=== PATIENT | female | born 1955 | race Caucasian/White ===

== ENCOUNTER 2016-10-03 17:37 | Inpatient (IN) | payer MEDICARE, OTHER ==
--- NOTE | ~2016-10-03 | DS ---
Discharge Summary [facility] [address] [place]. 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 CONSULTS: None. PROCEDURES: None. BRIEF SUMMARY: This 61-year-old female resident of [facility] was admitted with acute respiratory failure with initially concerning for possible pneumonia, aspiration, and sepsis. The patient intermediate care was with broad-spectrum antimicrobial therapy. After further observation, the patient's chest x-ray was unremarkable. White count was normal. Procalcitonin was normal and she was afebrile. With improved pulmonary toilet, her symptoms resolved, and she was continued to be observed in intermediate care and felt to transition back to her baseline. Because of the prompt recovery, this was not consistent with underlying pneumonia or aspiration, but much more consistent with mucous plugging. The patient was felt stable to return to an [facility] on her current medical therapy without significant additions or deletions. The patient will transition back to [facility] this afternoon 10/05/2016 to continue her current medical therapy as well as her current nutrition therapy via PEG tube. DICTATED BY: Sammy Jensen M.D. [facility]/MIKE Sammy Jensen M.D. / [id number] CC: Gloria Oseguera M.D.
--- NOTE | ~2016-10-03 | HP ---
History And Physical [facility] [address] [facility] [place]. [address] NAME: LENA MILAN : 59 STATUS : ADM IN [facility]#: [id number] AGE: 61 ADM/REG DATE : 10/03/16 MR#: [id number] REPORT SERV DATE: 10/04/16 DICTATED BY: YVES CATHERINE DATE: 10/04/16 REPORT STATUS : Draft TRANSCRIBED BY: MODAnand DATE: 10/04/16 DATE OF ADMISSION: 10/03/2016 CHIEF COMPLAINT: Respiratory distress and agitation. HISTORY OF PRESENT ILLNESS: This is a 61-year-old quadriplegic female with dementia and developmental delay, movement disorder, who has chronic respiratory failure status post tracheostomy, who recently was transferred from a facility in [place], [place], to [facility] here. For the last few days she has been here. Ms. Milan has been reasonably well, but this afternoon she started feeling very restless and went into respiratory distress. The respiratory therapist were summoned at that time and found her oxygen saturations were plummeting down with increased secretions from the trach as well. EMS was summoned, the patient was evaluated and then immediately transferred to [facility] ER. Not much else is available as the information from the caregivers who are at bedside, or from the transferring facility. They are still trying to get some information to us especially the patient's code status which is unknown. In the emergency room, she did have acute on chronic respiratory failure. Chest x-ray showed minimal bibasilar airspace disease versus atelectasis concerning for aspiration pneumonitis versus pneumonia. She did meet criteria for sepsis as well and Hospitalist Service is asked to admit her for further evaluation and treatment. At the time of my evaluation, the patient was unable to provide any history due to her advanced dementia and developmental delay. The limited review of systems and information was obtained from the caregivers who are at bedside. Apparently, there is no recent history of cough, fever, chills, nausea, vomiting, or any other events. PAST MEDICAL HISTORY: Significant for history of chronic respiratory failure requiring tracheostomy, chronic dysphagia requiring a J tube and a PEG tube placed. She has history of seizure disorder and as mentioned above quadriplegia with developmental delay, and dementia. She also has movement disorder. SOCIAL HISTORY: She has never smoked. Does not drink, or use recreational drugs. FAMILY HISTORY: Noncontributory. MEDICATIONS: Her medications from the facility were reviewed by me in the chart today and reordered by me. REVIEW OF SYSTEMS: As in history of present illness. No other information is available on the patient as stated. PHYSICAL EXAMINATION: GENERAL: This is a 61-year-old quadriplegic patient in quite a bit of agitation and severe mental retardation. Unable to communicate or follow commands. History And Physical [address] [address] NAME: LENA MILAN : 59 STATUS : ADM IN PAT#: [id number] AGE: 61 ADM/REG DATE : 10/03/16 MR#: [id number] REPORT SERV DATE: 10/04/16 DICTATED BY: YVES CATHERINE DATE: 10/04/16 REPORT STATUS : Draft TRANSCRIBED BY: MIKE DATE: 10/04/16 HEENT: Her head appears to be atraumatic. Her pupils are equal, reacting to light and accommodating. NECK: Appear to be supple, but with the agitation it is hard to tell. LUNGS: Auscultation of her lungs revealed no wheezes, rubs, or crackles. LUNGS: Auscultation of her heart revealed normal rate and rhythm. ABDOMEN: Soft and nontender. Bowel sounds are present. EXTREMITIES: Contractures in all four extremities without any cyanosis or clubbing. NEURO: Exam could not be performed due to her mental condition and dementia. VITAL SIGNS: Today showed a temperature of 99.4, pulse was 127, respirations 31, and blood pressure upon arrival was 119/46. Oxygen saturations upon arrival were 100% on 15 L. LABORATORY DATA: Reviewed on the Informative system showed a pH of 7.40 on arterial blood gas, pCO2 was 45, PaO2 of 101, and bicarb was 27.6. This was on 100%. CMP was essentially normal with a blood glucose of 104. Troponin was 0.02. BNP was 15.5. Lactate was not done. [place] [address], hemoglobin was 14.4, hematocrit 43.9, and platelet count was 320,000. Urinalysis was grossly unremarkable. Films of the chest x-ray were reviewed by me on the PACS today and interpreted by me. Per my interpretation, there is minimal bibasilar airspace disease versus atelectasis. IMPRESSION: 1. Acute on chronic respiratory failure to aspiration pneumonitis versus pneumonia. 2. Sepsis syndrome. 3. Seizure disorder. 4. Chronic dysphagia with J-tube and PEG placement. 5. Quadriplegia with mental retardation, developmental delay, and dementia. 6. Tracheostomy for chronic respiratory failure. 7. Movement disorder. PLAN: We will admit Ms. Milan to the Hospitalist Service to the Medical Intermediate Care Unit for close monitoring. After cultures are drawn, we will start her on empiric IV antibiotics, cover for healthcare-associated pneumonia. We will obtain lactate and procalcitonin levels, and monitor closely. Her blood pressure appears to be stable now. We will start her on IV fluids for volume resuscitation. Place a Saravia catheter. Follow outputs and weights. We will also check random cortisol and an A1c as well. She will be placed on bronchodilator treatments, supplemental oxygen therapy, and mucolytics to her regimen. The patient is tolerating trach collar well at this time. We will continue to monitor her closely. She will be placed on unfractionated heparin for DVT prophylaxis as well. Please see today's orders for details. I have discussed the above plans with the caregiver. There questions were answered and they are agreeable to the above recommendations. Of note, the patient's DNR status is unknown from the facility and so for now she will be a full code until any next of kin can be reached in the morning. History And Physical [address] [address] NAME: LENA MILAN : 59 STATUS : ADM IN [facility]#: [id number] AGE: 61 ADM/REG DATE : 10/03/16 MR#: [id number] REPORT SERV DATE: 10/04/16 DICTATED BY: YVES CATHERINE DATE: 10/04/16 REPORT STATUS : Draft TRANSCRIBED BY: MIKE DATE: 10/04/16 Hospitalist Service will be following her during her stay here. /MIKE Yves Catherine M.D. / [id number] CC: Gloria Oseguera M.D.
[2016-10-03 17:08] LABS: BASOPHILS 0.1 %; BASOPHILS ABSOLUTE 0.01 10/3/uL (0.0-0.16); EOSINOPHILS ABSOLUTE 0.13 10/3/uL (0.0-0.53); ER CBC TAT 0 Hrs 13 Mins; HEMATOCRIT 43.9 % (36.0-48.0); HEMOGLOBIN 14.4 g/dL (12.0-16.0); IMMATURE GRANULOCYTES 0.2 %; IMMATURE GRANULOCYTES ABSOLUTE 0.03 10/3/uL (0.0-0.11); LYMPHOCYTES 8.7 %; LYMPHOCYTES ABSOLUTE 1.14 10/3/uL (0.67-4.30); MANUAL DIFF NO %; MEAN CORPUS HGB CONC 32.8 g/dL (32.0-36.0); MEAN CORPUSCULAR HEMOGLOB 30.4 pg (26.0-34.0); MEAN CORPUSCULAR VOLUME 92.6 fL (80-100); MONOCYTES 6.7 %; MONOCYTES ABSOLUTE 0.88 10/3/uL (0.21-1.20); NEUTROPHILS 83.3 %; NEUTROPHILS ABSOLUTE 10.87 10/3/uL (2.02-8.40); PLATELET COUNT 320 10/3/uL (150-400); RBC DISTRIBUTION WIDTH 12.4 % (12.0-16.0); RED CELL COUNT 4.74 10/6/uL (4.0-5.6); WHITE BLOOD CELLS 13.1 10/3/uL (4.5-10.5)
[2016-10-03 17:17] LABS: BE (BASE EXCESS) 2.3 MEQ/L (0 +/- 2.5); DEVICE TM; HCO3 (ACTUAL BICARBONATE) 27.6 MEQ/L (23-27); INSTRUMENT SERIAL # 8087; PCO2 (CO2 TENSION) 45 MMHG (35-45); PO2 (O2 TENSION) 101 MMHG (79-93); SAMPLE Arterial
[2016-10-03 17:24] LABS: A/G RATIO 0.9 (0.7-1.9); ALBUMIN 3.7 G/DL (3.5-5.0); ALKALINE PHOSPHATASE 134 U/L (45-117); BUN (BLOOD UREA NITROGEN) 17 MG/DL (6-23); CALCIUM, SERUM 9.5 MG/DL (8.5-10.4); CHLORIDE, SERUM 106 MMOL/L (96-112); CO2 (CARBON DIOXIDE) 34 MMOL/L (24-34); CREATININE 0.75 MG/DL (0.55-1.02); GFR AFRICAN AMERICAN 101 ML/MIN (>=60); GFR NON AFRICAN AMERICAN 87 ML/MIN (>=60); GLOBULIN 4.3 G/DL (2.5-4.1); GLUCOSE, SERUM 168 MG/DL (60-99); POTASSIUM, SERUM 3.7 MMOL/L (3.5-5.3); SGOT(AST) 35 U/L (5-40); SGPT(ALT) 35 U/L (5-65); SODIUM, SERUM 143 MMOL/L (135-148); TOTAL BILIRUBIN 0.4 MG/DL (0-1.2); TROPONIN I <0.02 NG/ML (<0.05)
[2016-10-03] MEDS ORDERED: KLONO5 PEG (20:02)
[2016-10-03] MEDS ORDERED: FLONASE NAS (20:02)
[2016-10-03] MEDS ORDERED: ZYRTEC ALLGY10 MG PEG (20:02)
[2016-10-03] MEDS ORDERED: MYCOLOG II CREA15 GM TOP (20:03)
[2016-10-03] MEDS ORDERED: KCL20UDL PEG (20:03)
[2016-10-03] MEDS ORDERED: NEXIUM40 MG PEG (20:03)
[2016-10-03] MEDS ORDERED: PEROXIDE EX (20:04)
[2016-10-03] MEDS ORDERED: RISAQUAD PEG (20:05)
[2016-10-03] MEDS ORDERED: ALBUTEROL5 INH (20:05)
[2016-10-03] MEDS ORDERED: DUONEB INH (20:06)
[2016-10-03] MEDS ORDERED: PULRESP.5 INH (20:06)
[2016-10-03] MEDS ORDERED: KEPPRAUDL PEG ×2 (20:07)
[2016-10-03] MEDS ORDERED: CONSTULOSE PEG (20:08)
[2016-10-03] MEDS ORDERED: ZANTAC 150 PEG (20:08)
[2016-10-03] MEDS ORDERED: MIRALAX POWDER1 PKT PEG (20:08)
[2016-10-03] MEDS ORDERED: KLONO1 PEG (20:09)
[2016-10-03] MEDS ORDERED: VIMPAT200 MG PEG (20:09)
[2016-10-03] MEDS ORDERED: NEUR400 PEG (20:10)
[2016-10-03] MEDS ORDERED: IBU600 PEG (20:11)
[2016-10-03] MEDS ORDERED: VITD PEG (20:12)
[2016-10-03] MEDS ORDERED: MICONAZOLE CREA30 GM TOP (20:13)
[2016-10-03] MEDS ORDERED: T PEG (20:13)
[2016-10-03] MEDS ORDERED: BAZA TOP (20:14)
[2016-10-03] MEDS ORDERED: [UNRECOGNIZED DRUG - OTHER] TOP (20:14)
[2016-10-03] MEDS ORDERED: MICONAZOLE TOP (20:14)
[2016-10-03 21:01] LABS: PROCALCITONIN < 0.05 ng/mL (<0.5)
[2016-10-03 21:46] LABS: ASCORBIC ACID (UR NOT ORDER) NEG (NEG); BILIRUBIN, URINE NEGATIVE (NEG); ER URINALYSIS TAT 0 Hrs 00 Mins; KETONE, URINE NEGATIVE (NEG); LEUKOCYTE ESTERASE(NOT OR NEG (NEG); NITRITE (URINE) NEG (NEG); WBC (NOT ORDERED) (RFLEX) 2 (0-5)
[2016-10-04 03:38] LABS: BASOPHILS 0.2 %; BASOPHILS ABSOLUTE 0.01 10/3/uL (0.0-0.16); EOSINOPHILS 0.9 %; EOSINOPHILS ABSOLUTE 0.05 10/3/uL (0.0-0.53); HEMATOCRIT 41.6 % (36.0-48.0); HEMOGLOBIN 13.6 g/dL (12.0-16.0); IMMATURE GRANULOCYTES 0.2 %; IMMATURE GRANULOCYTES ABSOLUTE 0.01 10/3/uL (0.0-0.11); LYMPHOCYTES 19.8 %; LYMPHOCYTES ABSOLUTE 1.09 10/3/uL (0.67-4.30); MEAN CORPUS HGB CONC 32.7 g/dL (32.0-36.0); MEAN CORPUSCULAR HEMOGLOB 30.9 pg (26.0-34.0); MEAN CORPUSCULAR VOLUME 94.5 fL (80-100); MEAN PLATELET VOLUME 9.9 fL (9.2-13.0); MONOCYTES 10.2 %; MONOCYTES ABSOLUTE 0.56 10/3/uL (0.21-1.20); NEUTROPHILS 68.7 %; NEUTROPHILS ABSOLUTE 3.78 10/3/uL (2.02-8.40); PLATELET COUNT 237 10/3/uL (150-400); RBC DISTRIBUTION WIDTH 12.5 % (12.0-16.0)
[2016-10-04 03:39] LABS: MANUAL DIFF NO %; WHITE BLOOD CELLS 5.5 10/3/uL (4.5-10.5)
[2016-10-04 03:53] LABS: BUN (BLOOD UREA NITROGEN) 17 MG/DL (6-23); CHLORIDE, SERUM 111 MMOL/L (96-112); CREATININE 0.62 MG/DL (0.55-1.02); GFR AFRICAN AMERICAN 114 ML/MIN (>=60); GFR NON AFRICAN AMERICAN 99 ML/MIN (>=60); PHOSPHORUS, SERUM 2.9 MG/DL (2.5-4.5); POTASSIUM, SERUM 4.2 MMOL/L (3.5-5.3); SODIUM, SERUM 144 MMOL/L (135-148)
[2016-10-04 03:54] LABS: CO2 (CARBON DIOXIDE) 25 MMOL/L (24-34); GLUCOSE, SERUM 104 MG/DL (60-99)
[2016-10-04 13:24] LABS: A/G RATIO 0.8 (0.7-1.9); ALBUMIN 3.3 G/DL (3.5-5.0); ALKALINE PHOSPHATASE 101 U/L (45-117); GLOBULIN 4.1 G/DL (2.5-4.1); PREALBUMIN 18.2 MG/DL (17.0-43.0); SGOT(AST) 50 U/L (5-40); SGPT(ALT) 32 U/L (5-65); TOTAL BILIRUBIN 0.4 MG/DL (0-1.2); TOTAL PROTEIN 7.4 G/DL (6.0-8.5)
[2016-10-05 04:32] LABS: BASOPHILS 0.2 %; BASOPHILS ABSOLUTE 0.01 10/3/uL (0.0-0.16); EOSINOPHILS 8.1 %; EOSINOPHILS ABSOLUTE 0.34 10/3/uL (0.0-0.53); HEMATOCRIT 40.9 % (36.0-48.0); HEMOGLOBIN 13.3 g/dL (12.0-16.0); IMMATURE GRANULOCYTES 0.2 %; IMMATURE GRANULOCYTES ABSOLUTE 0.01 10/3/uL (0.0-0.11); LYMPHOCYTES 23.3 %; LYMPHOCYTES ABSOLUTE 0.98 10/3/uL (0.67-4.30); MEAN CORPUS HGB CONC 32.5 g/dL (32.0-36.0); MEAN CORPUSCULAR HEMOGLOB 30.6 pg (26.0-34.0); MEAN PLATELET VOLUME 10.4 fL (9.2-13.0); MONOCYTES 10.2 %; MONOCYTES ABSOLUTE 0.43 10/3/uL (0.21-1.20); NEUTROPHILS ABSOLUTE 2.44 10/3/uL (2.02-8.40); PLATELET COUNT 243 10/3/uL (150-400); RBC DISTRIBUTION WIDTH 12.5 % (12.0-16.0); RED CELL COUNT 4.35 10/6/uL (4.0-5.6); WHITE BLOOD CELLS 4.2 10/3/uL (4.5-10.5)
[2016-10-05 04:34] LABS: MANUAL DIFF NO %
[2016-10-05 04:41] LABS: CALCIUM, SERUM 8.7 MG/DL (8.5-10.4); CHLORIDE, SERUM 111 MMOL/L (96-112); CO2 (CARBON DIOXIDE) 28 MMOL/L (24-34); CREATININE 0.52 MG/DL (0.55-1.02); GFR AFRICAN AMERICAN 121 ML/MIN (>=60); GFR NON AFRICAN AMERICAN 105 ML/MIN (>=60); GLUCOSE, SERUM 95 MG/DL (60-99); POTASSIUM, SERUM 3.7 MMOL/L (3.5-5.3); SODIUM, SERUM 145 MMOL/L (135-148)
[2016-10-05 04:43] LABS: BUN (BLOOD UREA NITROGEN) 11 MG/DL (6-23)
[2016-10-31] MEDS ORDERED: [UNRECOGNIZED DRUG - OTHER] PEG (15:58)
[2016-11-13] MEDS ORDERED: BUSPAR5 PO (11:30)
[2016-11-13] MEDS ORDERED: VITAMIN D31000 UNIT PO (11:38)
[2016-11-13] MEDS ORDERED: DIASTAT (11:44)
[2016-11-13] MEDS ORDERED: MIRALAX POWDER1 PKT PO (11:45)
[2016-11-13] MEDS ORDERED: LIDOCAINE VISCOUS (12:16)
[2016-12-06] MEDS ORDERED: ZANTAC150 MG PO (13:15)
== END 2016-10-05 22:42 | disposition home or self-care (01) | DRG 871 ==
LOC: ER 17:37 → IMCU 20:11
PROVIDERS: Emergency Medicine; Internal Medicine; Internal Medicine Pulmonary Disease
DX: A41.9 Sepsis, unspecified organism (principal); J96.21 Acute and chronic respiratory failure with hypoxia; G93.41 Metabolic encephalopathy; R53.2 Functional quadriplegia; Z93.0 Tracheostomy status; G40.89 Other seizures; R13.10 Dysphagia, unspecified; F79 Unspecified intellectual disabilities; F09 Unspecified mental disorder due to known physiological condition; Z93.1 Gastrostomy status; T17.990A Other foreign object in respiratory tract, part unspecified in causing asphyxiation, initial encounter
CPT/HCPCS: 31720; 71010; 80048; 80053; 81001; 82533; 82805; 83036; 83605; 83735; 83880; 84100; 84134; 84145; 84484; 85025; 87040; 87070; 87077; 87186; 87205; 87449; 87641; 94640; 96374; 96376; 99285; A9270-GY; C9113; J0692; J3370

== ENCOUNTER 2016-10-07 18:42 | Emergency (ER) | payer MEDICARE, OTHER ==
[~2016-10-07 18:42] MED LIST: ALBUTEROL5 INH; BAZA TOP; CONSTULOSE PEG; DUONEB INH; FLONASE NAS; IBU600 PEG; KCL20UDL PEG; KEPPRAUDL PEG; KLONO1 PEG; KLONO5 PEG; MICONAZOLE CREA30 GM TOP; MICONAZOLE TOP; MIRALAX POWDER1 PKT PEG; MYCOLOG II CREA15 GM TOP; NEUR400 PEG; NEXIUM40 MG PEG; PEROXIDE EX; PULRESP.5 INH; RISAQUAD PEG; T PEG; VIMPAT200 MG PEG; VITD PEG; ZANTAC 150 PEG; ZYRTEC ALLGY10 MG PEG; [UNRECOGNIZED DRUG - OTHER] TOP
[2016-10-07 18:51] LABS: BASOPHILS 0.2 %; BASOPHILS ABSOLUTE 0.01 10/3/uL (0.0-0.16); EOSINOPHILS 3.8 %; ER CBC TAT 0 Hrs 12 Mins; HEMATOCRIT 39.9 % (36.0-48.0); HEMOGLOBIN 13.1 g/dL (12.0-16.0); IMMATURE GRANULOCYTES 0.2 %; IMMATURE GRANULOCYTES ABSOLUTE 0.01 10/3/uL (0.0-0.11); LYMPHOCYTES 33.8 %; LYMPHOCYTES ABSOLUTE 1.76 10/3/uL (0.67-4.30); MEAN CORPUS HGB CONC 32.8 g/dL (32.0-36.0); MEAN CORPUSCULAR HEMOGLOB 30.5 pg (26.0-34.0); MEAN PLATELET VOLUME 9.9 fL (9.2-13.0); MONOCYTES 8.1 %; MONOCYTES ABSOLUTE 0.42 10/3/uL (0.21-1.20); NEUTROPHILS 53.9 %; NEUTROPHILS ABSOLUTE 2.81 10/3/uL (2.02-8.40); PLATELET COUNT 261 10/3/uL (150-400); RBC DISTRIBUTION WIDTH 12.9 % (12.0-16.0); RED CELL COUNT 4.29 10/6/uL (4.0-5.6); WHITE BLOOD CELLS 5.2 10/3/uL (4.5-10.5)
[2016-10-07 18:52] LABS: MANUAL DIFF NO %
[2016-10-07 19:02] LABS: BUN (BLOOD UREA NITROGEN) 12 MG/DL (6-23); CALCIUM, SERUM 9.3 MG/DL (8.5-10.4); CHLORIDE, SERUM 108 MMOL/L (96-112); CO2 (CARBON DIOXIDE) 31 MMOL/L (24-34); CREATININE 0.66 MG/DL (0.55-1.02); GFR AFRICAN AMERICAN 112 ML/MIN (>=60); GFR NON AFRICAN AMERICAN 97 ML/MIN (>=60); GLUCOSE, SERUM 77 MG/DL (60-99); POTASSIUM, SERUM 3.9 MMOL/L (3.5-5.3); SODIUM, SERUM 147 MMOL/L (135-148)
[2016-10-07 19:58] LABS: BE (BASE EXCESS) 2.3 MEQ/L (0 +/- 2.5); CARBOXYHEMOGLOBIN 0.9 % (0-3); DEVICE TM; HCO3 (ACTUAL BICARBONATE) 26.9 MEQ/L (23-27); HEMOBLOGIN CONTENT 12.8 G/DL (12-16); INSTRUMENT SERIAL # 8087; METHEMOGLOBIN 0.2 % (0-3); PCO2 (CO2 TENSION) 42 MMHG (35-45); PO2 (O2 TENSION) 77 MMHG (79-93); SAMPLE Arterial; pH 7.43 (7.37-7.43)
[2016-10-31] MEDS ORDERED: [UNRECOGNIZED DRUG - OTHER] PEG (15:58)
[2016-11-13] MEDS ORDERED: BUSPAR5 PO (11:30)
[2016-11-13] MEDS ORDERED: VITAMIN D31000 UNIT PO (11:38)
[2016-11-13] MEDS ORDERED: DIASTAT (11:44)
[2016-11-13] MEDS ORDERED: MIRALAX POWDER1 PKT PO (11:45)
[2016-11-13] MEDS ORDERED: LIDOCAINE VISCOUS (12:16)
[2016-12-06] MEDS ORDERED: ZANTAC150 MG PO (13:15)
== END 2016-10-07 21:29 | disposition home or self-care (01) ==
LOC: ER 18:42
PROVIDERS: Emergency Medicine
DX: T17.490A Other foreign object in trachea causing asphyxiation, initial encounter (principal); F03.90 Unspecified dementia, unspecified severity, without behavioral disturbance, psychotic disturbance, mood disturbance, and anxiety; Z88.2 Allergy status to sulfonamides; Z88.8 Allergy status to other drugs, medicaments and biological substances; Z79.899 Other long term (current) drug therapy
CPT/HCPCS: 36600; 71010; 80048; 82805; 85025; 94640; 99285